=== PATIENT | female | born 1935 | race Caucasian/White ===

== ENCOUNTER 2017-06-20 11:49 | Inpatient (IN) ==
[2017-06-20 13:09] LABS: Basophils # 0.1 10*3/uL (0.0-0.2); Eosinophils # 0.3 10*3/uL (0.0-0.87); Eosinophils % 4.3 % (0.00-10.9); Hematocrit 39.6 VOL% (35.7-47.0); Hemoglobin 13.6 GM/DL (12.0-16.0); Immature Granulocytes % 0.3 %; Immature Granulocytes Absolute 0.02 #; Lymphocytes # 2.8 10*3/uL (1.4-4.0); Lymphocytes % 38.7 % (21.3-54.2); Mean Corpuscular HGB Conc 34.3 GM/DL (32-36); Mean Corpuscular Hemoglobin 31 PG (27-34); Mean Corpuscular Volume 90.8 FL (87-102); Mean Platelet Volume 11.4 FL (9.6-12.0); Monocytes # 0.6 10*3/uL (0.11-0.8); Monocytes % 8.9 % (1.7-12.7); Neutrophils # 3.4 10*3/uL (1.4-7.4); Neutrophils % 46.8 % (38.7-73.9); Platelet Count 293 T/CUMM (130-400); Red Blood Count 4.36 MC/CUMM (3.8-5.5); White Blood Count 7.2 T/CUMM (4-12)
[2017-06-20 13:18] LABS: Apearance,Urine CLEAR (Clear); Bilirubin,Urine Negative (Negative); Blood, Urine Negative (Negative); Glucose,Urine (UA) Negative (Negative); Ketones,Urine Negative (Negative); Nitrite,Urine Negative (Negative); PT Patient Result 10.2 SECS; Protein,Urine Negative; RBC,Urine <1 /HPF (0-4); Squamous Epithelial Cell,Urine Occasional /HPF (0-10); Urine Color Yellow (Yellow); Urine Specific Gravity 1.009 (1.001-1.035); Urine Urobilinogen < 2.0 EU/DL (0.2-1.0); WBC,Urine 4 /HPF (0-6)
[2017-06-20] MEDS ORDERED: amLODIPine 5 MG TABLET PO STA (13:42)
[2017-06-20 13:44] LABS: Albumin 3.8 G/DL (3.4-5.0); Bilirubin,Total 0.4 MG/DL (0.2-1.0); Calcium 9.9 MG/DL (8.5-10.1); Osmolality,Calculated 285.4 MOS/KG (273-304); Potassium 5.3 MMOL/L (3.5-5.1); Total Protein 7.2 G/DL (6.4-8.3)
[2017-06-20] MEDS ORDERED: amLODIPine 5 MG TABLET ONE (13:46)
[2017-06-20] MEDS ORDERED: ASPIRIN 325 MG TABLET PO STA (15:25)
[2017-06-20] MEDS ORDERED: ACETAMINOPHEN 325 MG TABLET PO PRN (15:25)
[2017-06-20] MEDS ORDERED: GLUCAGON 1 MG VIAL IM PRN ×2 (15:25→18:53)
[2017-06-20] MEDS ORDERED: DEXTROSE 50% 25 GM/50 ML VIAL IV PRN ×2 (15:25→18:53)
[2017-06-20] MEDS ORDERED: ONDANSETRON 4 MG/2 ML VIAL IV PRN (15:25)
[2017-06-20] MEDS ORDERED: ASPIRIN 325 MG TABLET PO ONE (16:06)
[2017-06-20] MEDS ORDERED: SKIN HEALING OINT (AQUAPHOR) 50 GM TUBE TOP PRN (18:42)
[2017-06-20] MEDS ORDERED: traZODone 50 MG TABLET PO PRN (18:44)
[2017-06-20] MEDS ORDERED: cefTRIAXone 500 MG in SYRINGE 1 EACH IV SCH (20:00)
[2017-06-20 20:18] LABS: Troponin I Only < 0.015 NG/ML (0.00-0.045)
[2017-06-20] MEDS: DOCUSATE SODIUM 100 MG CAPSULE PO SCH (20:31)
[2017-06-20] MEDS: methylPREDNISolone SOD SUC 40 MG/1 ML VIAL IV SCH (20:32)
[2017-06-20] MEDS: INSULIN REGULAR 100 UNIT/ML SUBCUT SCH (20:33)
[2017-06-20] MEDS ORDERED: MONTELUKAST 10 MG TABLET PO SCH (21:00)
[2017-06-20] MEDS: SODIUM CHLORIDE 0.45% 1,000 ML IV SCH (21:11)
[2017-06-21 05:59] LABS: Blood Urea Nitrogen 25 MG/DL (7-18); Calcium 9.4 MG/DL (8.5-10.1); Cholesterol 230 MG/DL (50-200); Glucose 209 MG/DL (74-106); HDL Cholesterol 40 MG/DL (40-60); Osmolality,Calculated 284.7 MOS/KG (273-304); Potassium 4.7 MMOL/L (3.5-5.1); Risk Ratio 5.75; Sodium 138 MMOL/L (136-145); Triglycerides 205 MG/DL (2-150); Troponin I Only < 0.015 NG/ML (0.00-0.045)
[2017-06-21] MEDS ORDERED: LEVOTHYROXINE 25 MCG TABLET PO SCH (06:30)
[2017-06-21] MEDS ORDERED: CYANOCOBALAMIN 1000 MCG/1 ML VIAL IM ONE (06:54)
[2017-06-21] MEDS ORDERED: FENOFIBRATE 160 MG TABLET PO SCH (08:00)
[2017-06-21] MEDS ORDERED: metFORMIN 500 MG TABLET PO SCH (08:00)
[2017-06-21] MEDS ORDERED: ASPIRIN EC 325 MG TABLET PO SCH (09:00)
[2017-06-21] MEDS ORDERED: PANTOPRAZOLE 40 MG TABLET PO SCH (09:00)
[2017-06-21] MEDS ORDERED: CHLORTHALIDONE 25 MG TABLET PO SCH (09:00)
[2017-06-21] MEDS ORDERED: ANASTROZOLE 1 MG TABLET PO SCH (09:00)
[2017-06-21] MEDS: metFORMIN 500 MG TABLET PO SCH ×2 (09:14→16:57)
[2017-06-21] MEDS: DOCUSATE SODIUM 100 MG CAPSULE PO SCH (09:16)
[2017-06-21] MEDS: methylPREDNISolone SOD SUC 40 MG/1 ML VIAL IV SCH (09:18)
[2017-06-21] MEDS: SODIUM CHLORIDE 0.45% 1,000 ML IV SCH ×2 (09:26→16:55)
[2017-06-21] MEDS: INSULIN REGULAR 100 UNIT/ML SUBCUT SCH ×3 (10:50→16:57)
[2017-06-21] MEDS ORDERED: ALBUTEROL/IPRATROPIUM 3 ML NEB RESP TX SCH ×2 (13:26→19:00)
[2017-06-21 16:20] VITALS: BP 183/92
[2017-06-21] MEDS ORDERED: ATORVASTATIN 10 MG TABLET PO SCH (21:00)
[2017-06-21] MEDS ORDERED: ROSUVASTATIN 10 MG TABLET PO SCH (21:00)
== END 2017-06-21 18:10 | disposition home or self-care (01) | DRG 69 ==
LOC: N.ED 11:49 → N.EDINP 11:49 → SUPCPDRO 14:07 → N.EDINP 14:55 → N.4E 15:05
PROVIDERS: ADMIT Internal Medicine; ATTEND Internal Medicine

== ENCOUNTER 2020-01-21 13:55 | Inpatient (IN) ==
[2020-01-21] MEDS ORDERED: ONDANSETRON 4 MG/2 ML VIAL ONE (14:11)
[2020-01-21] MEDS ORDERED: ENOXAPARIN 60 MG/0.6 ML SYRINGE ONE (14:11)
[2020-01-21] MEDS ORDERED: MORPHINE 4 MG/1 ML VIAL ONE (14:12)
[2020-01-21] MEDS ORDERED: ASPIRIN 325 MG TABLET ONE (14:12)
[2020-01-21] MEDS ORDERED: NITROGLYCERIN SL 0.4 MG TABLET SL ONE ×2 (14:12→14:13)
[2020-01-21] MEDS ORDERED: ASPIRIN 325 MG TABLET PO STA (14:19)
[2020-01-21] MEDS ORDERED: METOPROLOL TARTRATE 5 MG/5 ML VIAL IV ONE ×2 (14:19)
[2020-01-21] MEDS ORDERED: NITROGLYCERIN SL 0.4 MG TABLET SL PRN (14:19)
[2020-01-21] MEDS ORDERED: ENOXAPARIN 100 MG/ML SYRINGE SUBCUT STA (14:19)
[2020-01-21] MEDS ORDERED: MAGNESIUM SULF RIDER 4 GM in PREMIX 1 EACH IV PRN ×2 (14:21→15:57)
[2020-01-21] MEDS ORDERED: MAGNESIUM SULF RIDER 2 GM in PREMIX 1 EACH IV PRN ×3 (14:21→15:57)
[2020-01-21] MEDS ORDERED: POTASSIUM CHLORIDE RIDER 10 MEQ in PREMIX 1 EACH IV PRN (14:24)
[2020-01-21] MEDS ORDERED: diphenhydrAMINE CAP 25 MG CAPSULE PO ONE (14:24)
[2020-01-21] MEDS ORDERED: DIAZEPAM 5 MG TABLET PO ONE (14:24)
[2020-01-21 14:27] LABS: Basophils # 0.1 10*3/uL (0.0-0.2); Basophils % 0.6 % (0.0-0.8); Eosinophils # 0.1 10*3/uL (0.0-0.87); Eosinophils % 1.2 % (0.00-10.9); Hematocrit 45.8 VOL% (35.7-47.0); Immature Granulocytes % 0.5 %; Immature Granulocytes Absolute 0.05 #; Lymphocytes # 2.8 10*3/uL (1.4-4.0); Lymphocytes % 26.9 % (21.3-54.2); Mean Corpuscular HGB Conc 32.8 GM/DL (32-36); Mean Corpuscular Volume 93.5 FL (87-102); Mean Platelet Volume 11.9 FL (9.6-12.0); Monocytes % 8.6 % (1.7-12.7); Neutrophils % 62.2 % (38.7-73.9); Platelet Count 233 T/CUMM (130-400); Red Cell Distribution Width 12.3 % (9.3-17.3); White Blood Count 10.3 T/CUMM (4-12)
[2020-01-21] MEDS ORDERED: MIDAZOLAM 2 MG/2 ML VIAL ONE (14:34)
[2020-01-21] MEDS ORDERED: fentaNYL 100 MCG/2 ML VIAL ONE (14:39)
[2020-01-21] MEDS ORDERED: TIROFIBAN 5,000 MCG/100 ML PREMIX IV ONE (14:42)
[2020-01-21] MEDS ORDERED: HEPARIN 5,000 UNIT/1 ML VIAL ONE (14:42)
[2020-01-21] MEDS ORDERED: LORATADINE 10 MG TABLET PO PRN (14:43)
[2020-01-21] MEDS ORDERED: MECLIZINE 25 MG TABLET PO PRN (14:43)
[2020-01-21] MEDS ORDERED: TIROFIBAN 5,000 MCG/100 ML PREMIX IV SCH (14:48)
[2020-01-21 14:49] LABS: Albumin 3.8 G/DL (3.4-5.0); Bilirubin,Total 0.8 MG/DL (0.2-1.0); Calcium 9.1 MG/DL (8.5-10.1); Osmolality,Calculated 280.8 MOS/KG (273-304); Total Protein 8.1 G/DL (6.4-8.3)
[2020-01-21 14:57] LABS: PT Patient Result 10.4 SECS (9.8-11.9)
[2020-01-21] MEDS ORDERED: TICAGRELOR 90 MG TABLET ONE (15:11)
[2020-01-21] MEDS ORDERED: SIMETHICONE CHEW 125 MG TABLET PO PRN (15:54)
[2020-01-21] MEDS ORDERED: ACETAMINOPHEN 325 MG TABLET PO PRN (15:54)
[2020-01-21] MEDS ORDERED: GLUCAGON 1 MG VIAL IM PRN ×2 (15:54→17:05)
[2020-01-21] MEDS ORDERED: DOCUSATE SODIUM 100 MG CAPSULE PO PRN (15:54)
[2020-01-21] MEDS ORDERED: ALUMINUM/MAGNES/SIMETH MAX STR 30 ML UDCUP PO PRN (15:54)
[2020-01-21] MEDS ORDERED: DEXTROSE 10% 250 ML BAG IV PRN (15:54)
[2020-01-21] MEDS ORDERED: MORPHINE 4 MG/1 ML VIAL IV PRN (15:54)
[2020-01-21] MEDS ORDERED: ONDANSETRON 4 MG/2 ML VIAL IV PRN (15:54)
[2020-01-21] MEDS ORDERED: PROMETHAZINE 25 MG TABLET PO PRN (15:54)
[2020-01-21] MEDS: SODIUM CHLORIDE 0.45% 1,000 ML IV SCH (16:30)
[2020-01-21] MEDS: SUCRALFATE 1 GM TABLET PO SCH ×2 (16:55→21:08)
[2020-01-21] MEDS ORDERED: DEXTROSE 50% 25 GM/50 ML VIAL IV PRN (17:05)
[2020-01-21] MEDS: INSULIN LISPRO 100 UNIT/ML SUBCUT SCH ×2 (17:55→21:00)
[2020-01-21] MEDS: METOPROLOL TARTRATE 25 MG TABLET PO SCH (21:08)
[2020-01-21] MEDS: gemfibroziL 600 MG TABLET PO SCH (21:08)
[2020-01-21] MEDS: cilostazoL 50 MG TABLET PO SCH (21:09)
[2020-01-22] MEDS: SODIUM CHLORIDE 0.45% 1,000 ML IV SCH ×2 (00:45→08:52)
[2020-01-22 03:14] LABS: Basophils % 0.4 % (0.0-0.8); Eosinophils # 0.1 10*3/uL (0.0-0.87); Eosinophils % 0.6 % (0.00-10.9); Hematocrit 37.5 VOL% (35.7-47.0); Hemoglobin 12.5 GM/DL (12.0-16.0); Immature Granulocytes % 0.2 %; Immature Granulocytes Absolute 0.02 #; Lymphocytes # 1.8 10*3/uL (1.4-4.0); Lymphocytes % 18.2 % (21.3-54.2); Mean Corpuscular HGB Conc 33.3 GM/DL (32-36); Mean Corpuscular Volume 92.8 FL (87-102); Monocytes % 9.3 % (1.7-12.7); Neutrophils % 71.3 % (38.7-73.9); Platelet Count 202 T/CUMM (130-400); Red Blood Count 4.04 MC/CUMM (3.8-5.5); Red Cell Distribution Width 12.5 % (9.3-17.3); White Blood Count 9.6 T/CUMM (4-12)
[2020-01-22 03:37] LABS: CKMB % 6.9 %
[2020-01-22 03:39] LABS: Albumin 2.9 G/DL (3.4-5.0); Bilirubin,Total 0.8 MG/DL (0.2-1.0); Calcium 7.9 MG/DL (8.5-10.1); Osmolality,Calculated 278.8 MOS/KG (273-304); Risk Ratio 4.85; Total Protein 6.3 G/DL (6.4-8.3); VLDL CHOLESTEROL 48.6 MG/DL
[2020-01-22 03:40] LABS: Troponin I 4.48 NG/ML (0.00-0.045)
[2020-01-22] MEDS: LEVOTHYROXINE 25 MCG TABLET PO SCH (06:26)
[2020-01-22] MEDS: cilostazoL 50 MG TABLET PO SCH (08:54)
[2020-01-22] MEDS: ASPIRIN EC 81 MG TABLET PO SCH (08:55)
[2020-01-22] MEDS: SUCRALFATE 1 GM TABLET PO SCH ×3 (08:55→20:48)
[2020-01-22] MEDS: PANTOPRAZOLE 40 MG TABLET PO SCH (08:55)
[2020-01-22] MEDS: METOPROLOL TARTRATE 25 MG TABLET PO SCH (08:55)
[2020-01-22] MEDS: GLIMEPIRIDE 2 MG TABLET PO SCH (08:55)
[2020-01-22] MEDS: gemfibroziL 600 MG TABLET PO SCH ×2 (08:55→20:48)
[2020-01-22] MEDS: INSULIN LISPRO 100 UNIT/ML SUBCUT SCH ×5 (08:59→20:51)
[2020-01-22] MEDS ORDERED: diphenhydrAMINE CAP 25 MG CAPSULE PO PRN (11:01)
[2020-01-22] MEDS: CLOPIDOGREL 75 MG TABLET PO SCH (12:45)
[2020-01-22] MEDS: FUROSEMIDE 20 MG TABLET PO SCH (12:45)
[2020-01-22 13:41] LABS: Apearance,Urine CLEAR (Clear); Bacteria,Urine Occasional /HPF (Few); Bilirubin,Urine Negative (Negative); Blood, Urine Negative (Negative); Glucose,Urine (UA) Negative (Negative); Ketones,Urine Negative (Negative); Nitrite,Urine Negative (Negative); Protein,Urine Negative; RBC,Urine 2 /HPF (0-4); Urine Color Straw (Yellow); Urine Specific Gravity 1.005 (1.001-1.035); Urine Urobilinogen < 2.0 EU/DL (0.2-1.0); WBC,Urine 1 /HPF (0-6)
[2020-01-22] MEDS: ASCORBIC ACID 500 MG TABLET PO SCH (20:48)
[2020-01-22] MEDS: carvediloL 6.25 MG TABLET PO SCH (20:48)
[2020-01-22] MEDS ORDERED: ROSUVASTATIN 10 MG TABLET PO SCH (21:00)
[2020-01-23 06:08] LABS: Basophils # 0.1 10*3/uL (0.0-0.2); Basophils % 0.5 % (0.0-0.8); Eosinophils # 0.1 10*3/uL (0.0-0.87); Eosinophils % 1.1 % (0.00-10.9); Hematocrit 36.4 VOL% (35.7-47.0); Hemoglobin 11.9 GM/DL (12.0-16.0); Immature Granulocytes % 0.4 %; Immature Granulocytes Absolute 0.04 #; Lymphocytes # 2.1 10*3/uL (1.4-4.0); Lymphocytes % 20.2 % (21.3-54.2); Mean Corpuscular HGB Conc 32.7 GM/DL (32-36); Mean Corpuscular Volume 92.9 FL (87-102); Mean Platelet Volume 12.5 FL (9.6-12.0); Monocytes % 9.2 % (1.7-12.7); Neutrophils % 68.6 % (38.7-73.9); Platelet Count 182 T/CUMM (130-400); Red Blood Count 3.92 MC/CUMM (3.8-5.5); Red Cell Distribution Width 12.6 % (9.3-17.3); White Blood Count 10.6 T/CUMM (4-12)
[2020-01-23 06:31] LABS: Calcium 8.1 MG/DL (8.5-10.1); Osmolality,Calculated 281.5 MOS/KG (273-304)
[2020-01-23] MEDS: LEVOTHYROXINE 25 MCG TABLET PO SCH (06:33)
[2020-01-23] MEDS: INSULIN LISPRO 100 UNIT/ML SUBCUT SCH ×4 (09:04→21:04)
[2020-01-23] MEDS: SUCRALFATE 1 GM TABLET PO SCH ×3 (09:06→20:43)
[2020-01-23] MEDS: FUROSEMIDE 20 MG TABLET PO SCH (09:06)
[2020-01-23] MEDS: ASPIRIN EC 81 MG TABLET PO SCH (09:06)
[2020-01-23] MEDS: PANTOPRAZOLE 40 MG TABLET PO SCH (09:06)
[2020-01-23] MEDS: CLOPIDOGREL 75 MG TABLET PO SCH (09:06)
[2020-01-23] MEDS: carvediloL 6.25 MG TABLET PO SCH ×2 (09:06→17:30)
[2020-01-23] MEDS: gemfibroziL 600 MG TABLET PO SCH ×2 (09:06→20:43)
[2020-01-23] MEDS: ASCORBIC ACID 500 MG TABLET PO SCH ×2 (09:06→20:43)
[2020-01-23] MEDS: GLIMEPIRIDE 2 MG TABLET PO SCH (09:06)
[2020-01-23] MEDS: SPIRONOLACTONE 25 MG TABLET PO SCH (13:00)
[2020-01-24 03:45] LABS: Basophils # 0.1 10*3/uL (0.0-0.2); Basophils % 0.6 % (0.0-0.8); Eosinophils # 0.3 10*3/uL (0.0-0.87); Eosinophils % 2.9 % (0.00-10.9); Hematocrit 37.3 VOL% (35.7-47.0); Hemoglobin 11.9 GM/DL (12.0-16.0); Immature Granulocytes % 0.4 %; Immature Granulocytes Absolute 0.04 #; Lymphocytes # 2.4 10*3/uL (1.4-4.0); Lymphocytes % 26.1 % (21.3-54.2); Mean Corpuscular HGB Conc 31.9 GM/DL (32-36); Mean Corpuscular Volume 95.9 FL (87-102); Mean Platelet Volume 12.3 FL (9.6-12.0); Monocytes % 11.1 % (1.7-12.7); Neutrophils % 58.9 % (38.7-73.9); Platelet Count 179 T/CUMM (130-400); Red Blood Count 3.89 MC/CUMM (3.8-5.5); Red Cell Distribution Width 12.5 % (9.3-17.3); White Blood Count 9.3 T/CUMM (4-12)
[2020-01-24 04:01] LABS: Calcium 8.3 MG/DL (8.5-10.1); Osmolality,Calculated 278.8 MOS/KG (273-304)
[2020-01-24] MEDS: LEVOTHYROXINE 25 MCG TABLET PO SCH (06:12)
[2020-01-24] MEDS: INSULIN LISPRO 100 UNIT/ML SUBCUT SCH (08:10)
[2020-01-24 08:17] VITALS: BP 113/61
[2020-01-24] MEDS: gemfibroziL 600 MG TABLET PO SCH (08:30)
[2020-01-24] MEDS: ASPIRIN EC 81 MG TABLET PO SCH (08:30)
[2020-01-24] MEDS: SUCRALFATE 1 GM TABLET PO SCH (08:30)
[2020-01-24] MEDS: SPIRONOLACTONE 25 MG TABLET PO SCH (08:30)
[2020-01-24] MEDS: PANTOPRAZOLE 40 MG TABLET PO SCH (08:30)
[2020-01-24] MEDS: ASCORBIC ACID 500 MG TABLET PO SCH (08:30)
[2020-01-24] MEDS: CLOPIDOGREL 75 MG TABLET PO SCH (08:30)
[2020-01-24] MEDS: FUROSEMIDE 20 MG TABLET PO SCH (08:30)
[2020-01-24] MEDS: carvediloL 6.25 MG TABLET PO SCH (08:30)
[2020-01-24] MEDS: GLIMEPIRIDE 2 MG TABLET PO SCH (08:30)
== END 2020-01-24 12:04 | disposition home or self-care (01) | DRG 281 ==
LOC: N.ED 13:55 → N.EDINP 14:21 → N.ICU 14:22 → N.TELEN 01-22 17:23
PROVIDERS: ADMIT Internal Medicine Cardiovascular Disease; ATTEND Internal Medicine Cardiovascular Disease
PROC: CLCCHCL (ICD-10-PCS; 2020-01-21 15:15)